=== PATIENT | female | born 1995 | race Caucasian/White ===

== ENCOUNTER → 2019-06-28 09:29 | Outpatient (CLI) | payer OTHER, SELFPAY ==
--- NOTE | 2019-06-28 09:34 | RAD_ITS ---
STUDY: HYSTEROSALPINGOGRAM. REASON FOR EXAM: Female, 24 years old. Infertility. FLUOROSCOPY TIME (if supplied): ( 19 seconds ) minutes/seconds TECHNIQUE: The wet process miller head performed a hysterosalpingogram. Imaging was submitted. COMPARISON: None. FINDINGS: The uterus is unremarkable. Both fallopian tubes are visualized and there is evidence of free spill. RAD/Salpingogram IMPRESSION: Unremarkable hysterosalpingogram. Electronically Signed: Fritz Ruiz, at 15:06 EST , Service support ,
== END ==
PROVIDERS: Family Provider Family Medicine; PCP Family Medicine; Referring Provider Obstetrics & Gynecology; Visit Provider Obstetrics & Gynecology
DX: N97.9 Female infertility, unspecified (principal)
CPT/HCPCS: 58340; 74740; Q9967

== ENCOUNTER 2021-10-02 09:40 | Inpatient (IN) | payer OTHER, SELFPAY ==
--- NOTE | 2021-09-30 13:56 | HP.PCM_ITS ---
History and Physical Date of Admission: 10/02/21 HPI: The patient is a 26 year old female presenting for pre-operative visit. She is scheduled for , for cholestasis of , 36-week high risk primigravida , maternal hearing malformation, high head at term with unfavorable cervix, polyhydramnios and gestational diabetes class A2 on 10/02/21. Procedure discussed along with risks, benefits and complications. Other alternatives discussed for management. Consent form signed? Reviewed but not signed, patient to sign day of surgery. ? ? PAST MEDICAL HISTORY PAST MEDICAL HISTORY Diagnosis Date ? Allergy, unspecified not elsewhere classified ? ? environmental-pollen ? anxiety ? ? Cholestasis during in third trimester 09/30/2021 ? Cyst, ovary, dermoid, left ? ? Diet controlled gestational diabetes mellitus (GDM) in third trimester 08/14/2021 ? History of Chiari malformation ? ? Infertility, female ? ? Irregular menses ? ? Malignant neoplasm of other specified sites of nervous system ? ? Neuroblastoma, Stage 4 dx at ? Meibomian gland dysfunction (MGD) of upper and lower lids of both eyes 11/27/2018 ? Menarche age 11 ? 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 Patellar tendinitis [id number] ? PMH - PAST MEDICAL HISTORY OF 02/17/1999 ? Color Vision - Normal ? Psoriasis and similar disorders ? ? Vitreous floaters of both eyes 11/27/2018 ? ? PAST SURGICAL HISTORY PAST SURGICAL HISTORY Procedure Laterality Date ? EMBRYO TRANSFER ? 01/01/2021 ? ? ESOPHAGOGASTRODUODENOSCOPY TRANSORAL DIAGNOSTIC ? 11/30/2012 ? EGD ? HSG ? 06/28/2019 ? HSG- normal uterine cavity, both tubes open ? OFFICE HYSTEROSCOPY ? 12/04/2020 ? PAST SURGICAL HISTORY OF ? ? ? at 6 mo of age had cancerous tumors removed from her abdomin ? PAST SURGICAL HISTORY OF ? ? ? broviac catheter for chemo treatments ? PAST SURGICAL HISTORY OF ? ? ? chemotherapy until age 1 ? REDUCTION OF LARGE BREAST Bilateral 10/2015 ? ? ? CURRENT MEDICATIONS Current Outpatient Medications Medication Sig Dispense Refill ? Breast Pump Use as directed 1 Each 0 ? blood sugar diagnostic test strip Use 1 Strip four times daily as inst ructed 360 Strip 1 ? Lancets lancets Use to test four times daily as instructed 400 Each 1 ? insulin NPH (HumuLIN N,NovoLIN N) pen Inject 20 Units subcutaneously daily at bedtime. 15 mL 1 ? sertraline (ZOLOFT) 100 mg tablet Take 1 tablet by mouth once daily. 90 tablet 3 ? Insulin Eagle, Disposable, (LITE TOUCH INSULIN PEN NEEDLES) 31 gauge x 1/4 ndle Use once daily 100 Each 1 ? aspirin, enteric coated (ECOTRIN LOW STRENGTH) 81 mg EC tablet Take 1 tablet by mouth once daily. ? ? ? Azelaic Acid 15 % gel Apply to the entire face up to twice daily. 50 g 6 ? PNV no.95/ferrous fum/folic ac ( ORAL) Take by mouth. ? ? ? ursodiol (ACTIGALL) 300 mg capsule Take 1 capsule by mouth three times daily. 24 capsule 0 ? No current facility-administered medications for this visit. ? ? ALLERGIES: Patient has no known allergies. ? PERSONAL HISTORY: SOCIAL HISTORY Social History ? Tobacco Use ? Smoking status: Never Smoker ? Smokeless tobacco: Never Used Vaping Use ? Vaping Use: Never used Substance Use Topics ? Alcohol use: No ? Drug use: No ? FAMILY HISTORY: FAMILY HISTORY FAMILY HISTORY Problem Relation Age of Onset ? other (migraine) Mother ? ? Asthma Father ? ? Stroke Father ? ? aortic disection ? other (aortic dissection) Father ? ? Asthma Brother ? ? Cancer Paternal Grandmother ? ? Stroke Paternal Grandfather ? ? other (Heart disease) Paternal Grandfather ? ? ? REVIEW OF SYMPTOMS: GENERAL: denies fevers or chills ENDOCRINOLOGY: has not been on steroids Cardiology : denies palpitations or chest pain Respiratory: denies SOB or cough Hematology: denies history of prolonged bleeding or easy bruising or VTE Allergy: Denies history of personal or family history of allergy to anesthesia ? PHYSICAL EXAMINATION: ? VITALS: Blood pressure 118/82, weight 181 lb (82.1 kg), last menstrual period 11/25/2020. ? GENERAL: The patient is well nourished, well hydrated in no acute distress. , The patient is oriented to time, place, and person. NECK: Supple. No lynphadenopathy, normal thyroid, no thyromegaly. LUNGS: Clear to auscultation bilaterally. no wheezes, rhonchi or rales HEART: Regular rate and rhythm, Normal heart sounds and No murmurs or gallops ABD- soft, nontender, gravid ext- 2+ edema, 1+ DTrs, no clonus ? IMPRESSION:PLAN/ 26-year-old 1 para 0 with endometrial . Presents for primary section. Has history of a Chiari malformation, she was cleared for vaginal delivery and regional anesthetic but was recommended not to have prolonged pushing. Her cervix is very unfavorable and head is unengaged. In addition the fetus is LGA and she has polyhydramnios. She also has cholestasis of . Risk benefits and alternatives to delivery at 36 weeks and risks of prematurity with fetus and maternal risks both short and senior care of section were reviewed with patient, her questions were answered to her satisfaction she desires to proceed. We reviewed option of induction. We reviewed option of continued close surveillance and delivery at 37 + weeks. She elects for c/s at 36 weeks. ? ? I have reviewed and updated past medical and surgical history, medications and allergies Assessment & Plan Assessment/Plan (1) 36 weeks gestation of : (2) Supervision of high-risk : (3) Chiari malformation type I: (4) Gestational diabetes mellitus, class A2: (5) Polyhydramnios affecting in third trimester: (6) Cholestasis during in third trimester: (7) resulting from in-vitro fertilization:
[2021-10-02] VITALS (18 sets, daily range): BP systolic 88–119; BP diastolic 42–81; PULSE 76–95; RESP 14–20; TEMP 35.7–36.6; O2SAT 94–99; BMI 33.3
[2021-10-02] MEDS: Lactated Ringers 1,000 ML 999 ML IV (10:00)
[2021-10-02 10:34] LABS: Absolute Lymphocyte Count 1.22 X10^3/uL (0.83-4.51); Absolute Neutrophil Count 6.5 X10^3/uL (2.0-7.7); Basophil# 0.03 X10^3/uL; Basophil% 0.4 % (0-1); Eosinophil# 0.06 X10^3/uL; Eosinophils% 0.7 % (0-5); Hematocrit 40.2 % (37-47); Lymphocyte # 1.22 X10^3/ul (0.83-4.51); Lymphocyte % 14.3 % (19-41); Mean Corp Hgb Conc 34.8 g/dL (32-36); Mean Corpuscular Hgb 35.2 pg (27.0-32.0); Mean Platelet Vol. 10.8 fl (6.2-12.0); Monocyte# 0.67 X10^3/uL; Monocyte% 7.8 % (0-10); NRBC Flagged by Analyzer 0 % (0-5); Neutrophil # 6.48 X10^3/uL (2.7-7.7); Neutrophil % 75.7 % (47-70); Platelet Count 228 K/mm3 (150-450); RBC Distribution Width CV 13.3 % (11.6-14.6); RBC Distribution Width SD 49.7 fl (35.1-43.9); Red Blood Count 3.98 M/mm3 (4.2-5.4); White Blood Count 8.6 K/mm3 (4.4-11.0)
[2021-10-02 10:55] LABS: Bedside Glucose 85 mg/dL (74-106)
[2021-10-02] MEDS: Lactated Ringers 1,000 ML 150 ML IV (11:25)
[2021-10-02] MEDS: Acetaminophen 500 MG Tablet 1000 MG PO ×2 (11:41→18:28)
[2021-10-02] MEDS: Sodium Citrate/Citric Acid 30 ML UDC PO (11:41)
[2021-10-02] MEDS: Cefazolin 2 GM in 0.9% Normal Saline 100 ML IV (11:55)
--- NOTE | 2021-10-02 13:04 | OP.PCM_ITS ---
Assessment & Plan (1) 36 weeks gestation of : (2) Supervision of high-risk : (3) Chiari malformation type I: (4) Gestational diabetes mellitus, class A2: (5) Polyhydramnios affecting in third trimester: (6) Cholestasis during in third trimester: (7) resulting from in-vitro fertilization: Maternal Data Information Final ARMANDO: 10/29/21 Gestational age: 36 1/7 Details Operative Information Date of Procedure: 10/02/21 Pre-Operative Diagnosis: 36 weeks, unfavorable cervix, high head at term- unengaged, maternal chiari malformation Post-Operative Diagnosis: same Classification: Scheduled Procedure Type: low transverse engineering technical analyst #1: Filiberto Bell Type of Anesthesia: Spinal Anesthesiologist: Briseida Jerez Special Medications: duramorph Antibiotic Given: Ancef 2 grams IV x1 Drain: Cisneros to straight drain Estimated Blood Loss: 900 Fluids Replaced: 1000 Procedure Start Time: 12:18 Procedure Stop Time: 12:53 Time of Delivery: 12:20 Findings Description of Procedure: The patient was taken to the operating room. She was prepped and draped in the dorsal supine position with a leftward tilt. A Pfan nenstiel skin incision was made approximately 2 cm above the symphysis pubis and carried through to underlying layer fascia with the scalpel. The fascia was incised incised in the midline and extended laterally with the Alexandra scissors. The fascia was dissected off the rectus muscles with blunt and sharp dissection. The rectus muscles were in the midline and the peritoneum was entered [bluntly]. The peritoneal incision was stretched and the bladder blade was placed. The uterine incision was made in a low transverse fashion with the scalpel and extended superiorly and inferiorly with blunt dissection. [The amniotic membranes were ruptured bluntly and clear amniotic fluid returned]. The 's head was brought to the incision in the flexed position and delivered without difficulty. The remainder of the infant was delivered with gentle traction and fundal pressure in the standard fashion. The mouth and nares were bulb suctioned. The cord was clamped and cut as the was stimulated. [Cord clamping was delayed]. The was handed off to the waiting nursing staff. The placenta was delivered with fundal massage and gentle traction in the standard fashion. The uterus was exteriorized and cleared of all clots and debris. [The cervix was dilated with a ring forcep]. The uterine incision was closed with #1 Vicryl in a running locked fashion. [A second layer of the same suture was used in an imbricating fashion.] The incision was examined and was found to be hemostatic. The uterus was placed back into the peritoneal cavity and hemostasis was again confirmed. The rectus muscles were examined and any bleeding was Bovie cauterized. [The parietal peritoneum and rectus muscles were closed en bloc with an 0 Vicryl running suture]. The surgical teams outer gloves were then changed. Gabriel was placed over the uterus, the rectus muscles, and in the subcutaneous tissue. Any bleeding was Bovie cauterized. The rectus fascia was examined and any bleeding was Bovie cauterized and the rectus fascia was closed with 0 PDS suture in a running standard fashion. The subcutaneous tissue was examining and any bleeding was Bovie cauterized. [The subcutaneous tissue was reapproximated with 3-0 Vicryl suture.] The skin was closed in a subcuticular fashion. I performed the entire procedure with assistance. All sponge, lap, and needle counts were correct. The patient was taken to her room for recovery in a stable condition. Presentation: Positive for Vertex Amniotic Membrane Rupture Type: Spontaneous Amniotic Fluid Description: Clear Placental Delivery Description: Expressed Placenta Disposition: Sent with transport team (Placenta to [facility] as transfered to [facility]) Cord Vessel Description: 3 Vessels Cord Entanglement: None Cord Gases: ABG and VBG Infant A Gender: Female (Candice) Delayed Cord Clamping: Yes Complications Complications: none
[2021-10-02] MEDS: Methylergonovine 0.2 MG/ML Ampul IM (13:10)
[2021-10-02] MEDS: Oxytocin 30 units/NS 500 ml 30 UNITS/500 ML IV.SOLN 167 UNITS IV (13:15)
--- NOTE | 2021-10-02 13:16 | NURSING ---
First check in or large clot expressed. total 200. Dr. Tanner aware. Okay to give Methergine. Upon entrance back to room small bleeding firm 2 below u.
[2021-10-02] MEDS: Ketorolac 30 MG/ML Syringe IV ×2 (13:30→19:34)
[2021-10-02] MEDS: Lactated Ringers 1,000 ML 100 ML IV (13:35)
[2021-10-02 16:16] LABS: Bedside Glucose 107 mg/dL (74-106)
[2021-10-02] MEDS: 0.9% Saline Lock 10 ML Syringe IV (19:34)
--- NOTE | 2021-10-02 21:17 | NURSING ---
IBCLC at bedside around 1940 assisting mother with initiation and education on pumping. Mother had the supplies but baby was able to breastfeed in SCN so she had not had to use it. Cleaning, handling, and sanitization explained and patient and indicate understanding. Mother pumped initially with the 25mm flange which were effective but explained if she was going to pump regularly she should try to use the flexishield inserts. Mother has a hx of a bilateral breast reduction but reports positive breast changes and said her breasts have grown to about the size she was before the reduction. When showing the mother how to use the pump she was able to get 3cc of milk in a very short time. Mother and previous IBCLC report that baby latched very well and easily in SCN so patient was instructed if baby is nursing well at least every 3 hours she doesn't have to pump but if baby ever does not nurse well to pump to ensure proper breast and nipple stimulation to assist with milk production.
--- NOTE | 2021-10-02 23:38 | NURSING ---
supervisor in charge updated on pulse ox reading 94%. resp nonlabored and WNL.
[2021-10-03] VITALS (11 sets, daily range): BP systolic 102–113; BP diastolic 60–73; PULSE 70–84; RESP 14–18; TEMP 36–36.3; O2SAT 92–97
[2021-10-03] MEDS: 0.9% Saline Lock 10 ML Syringe IV ×2 (01:10→06:34)
[2021-10-03] MEDS: Acetaminophen 500 MG Tablet 1000 MG PO ×4 (01:10→18:37)
[2021-10-03] MEDS: Ketorolac 30 MG/ML Syringe IV ×2 (01:10→06:34)
--- NOTE | 2021-10-03 01:43 | NURSING ---
pt unable to void 6 hours after caal cath removed. attempted x3. ammonium salt used. pt able to hydrate per PO well. straight cath performed. pt aware she has another 6 hours to void before an indwelling cath is placed. water tumbler refilled. PO fluids encouraged.
[2021-10-03 04:44] LABS: Hematocrit 33.4 % (37-47); Hemoglobin 11.1 g/dL (12.0-15.0); Mean Corp Hgb Conc 33.2 g/dL (32-36); Mean Corpuscular Hgb 34.8 pg (27.0-32.0); Mean Corpuscular Volume 104.7 fL (81-99); Mean Platelet Vol. 10.9 fl (6.2-12.0); Platelet Count 192 K/mm3 (150-450); RBC Distribution Width CV 13.4 % (11.6-14.6); RBC Distribution Width SD 51.8 fl (35.1-43.9); Red Blood Count 3.19 M/mm3 (4.2-5.4); White Blood Count 10.2 K/mm3 (4.4-11.0)
[2021-10-03 04:46] LABS: Bedside Glucose 138 mg/dL (74-106)
--- NOTE | 2021-10-03 10:10 | PN.OBGYN_ITS ---
Subjective Subjective Pain well controlled, average lochia. No N/V. Has been up and ambulating and visiting her daughter in [facility]. Objective Data Objective Data Vital Signs: Vital Signs Temp Pulse Resp BP Pulse Ox 97.0 F L 80 16 106/64 97 10/03/21 07:58 10/03/21 07:58 10/03/21 07:58 10/03/21 07:58 10/03/21 07:58 Oxygen Delivery Method Room Air Weight: 82.554 kg Body Mass Index (BMI) 33.3 Intake & Output: Intake and Output for Last 24 Hours 10/01/21 10/02/21 10/03/21 23:59 23:59 23:59 Intake Total 2771.5 / 2771.5 800 / 800 Output Total 250 / 250 1500 / 1500 Balance 2521.5 / 2521.5 -700 / -700 Lab / Micro Data Result Diagrams: 10/03/21 04:35 Labs: Laboratory Results - last 24 hr 10/02/21 10:10: WBC 8.6, RBC 3.98 L, Hgb 14.0, Hct 40.2, MCV 101.0 H, MCH 35.2 H , MCHC 34.8, RDW Std Deviation 49.7 H, RDW Coeff of Juliet 13.3, Plt Count 228, MPV 10.8, Immature Gran % (Auto) 1.100 H, Neut % (Auto) 75.7 H, Lymph % (Auto) 14.3 L, [place] % (Auto) 7.8, Eos % (Auto) 0.7, Baso % (Auto) 0.4, Absolute Neuts (auto) 6.5, Absolute Lymphs (auto) 1.22, Nucleated RBC % 0 10/02/21 10:10: Blood Type A POSITIVE, Antibody Screen NEGATIVE 10/02/21 10:42: POC Glucose 85 10/02/21 16:04: POC Glucose 107 H 10/03/21 04:33: POC Glucose 138 H 10/03/21 04:35: WBC 10.2, RBC 3.19 L, Hgb 11.1 L, Hct 33.4 L, MCV 104.7 H, MCH 34.8 H, MCHC 33.2, RDW Std Deviation 51.8 H, RDW Coeff of Juliet 13.4, Plt Count 192, MPV 10.9 Micro: Microbiology 10/02/21 10:00 Nasal Secretion SARS-CoV-2 Antigen (Rapid) - Final Physical Exam Const alert General Appearance: cooperative GI GI Narrative: soft, moderate distention, fundus firm, appropriately tender. Abdominal bandage clean dry and intact Assessment & Plan (1) delivery delivered: PLAN: Postoperative day #1 status post primary section. Patient is doing well. Routine care. Acute blood loss anemia is appropriate for blood loss during surgery. is breast-feeding and doing well in the special care nursery.
[2021-10-03] MEDS: Sertraline 100 MG Tablet PO (11:55)
[2021-10-03] MEDS: Senna/Docusate Sodium 1 Tablet PO (11:55)
[2021-10-03] MEDS: Ibuprofen 600 MG Tablet PO ×2 (13:03→18:37)
[2021-10-04] MEDS: Ibuprofen 600 MG Tablet PO ×4 (00:56→18:49)
[2021-10-04] MEDS: Acetaminophen 500 MG Tablet 1000 MG PO ×4 (01:28→18:49)
[2021-10-04 02:50] VITALS: BP 111/66; PULSE 82; RESP 16; TEMP 36.2; O2SAT 95
[2021-10-04 09:45] VITALS: BP 119/80; PULSE 85; RESP 18; TEMP 36.6
--- NOTE | 2021-10-04 11:06 | PCM.PN.OB ---
Subjective Subjective Pain well controlled. Average lochia. Ambulating and tolerating regular diet without difficulty. Positive flatus. No bowel movement yet. Objective Data Objective Data Vital Signs: Vital Signs Temp Pulse Resp BP Pulse Ox 97.8 F 85 18 119/80 95 10/04/21 09:45 10/04/21 09:45 10/04/21 09:45 10/04/21 09:45 10/04/21 02:50 Oxygen Delivery Method Room Air Weight: 82.554 kg Body Mass Index (BMI) 33.3 Intake & Output: Intake and Output for Last 24 Hours 10/02/21 10/03/21 10/04/21 23:59 23:59 23:59 Intake Total 2771.5 / 2771.5 800 / 800 Output Total 250 / 250 2100 / 2100 Balance 2521.5 / 2521.5 -1300 / -1300 Lab / Micro Data Result Diagrams: 10/03/21 04:35 Micro: Microbiology 10/02/21 10:00 Nasal Secretion SARS-CoV-2 Antigen (Rapid) - Final Physical Exam Const alert General Appearance: cooperative GI GI Narrative: soft, moderate distention, fundus firm, appropriately tender. Abdominal bandage clean dry and intact Assessment & Plan (1) delivery delivered: PLAN: Postop day #2 status post primary section. Patient is doing well. is doing well in special care nursery. Patient anticipates will be discharged tomorrow. Discharge patient home tomorrow.
[2021-10-04] MEDS: Sertraline 100 MG Tablet PO (12:46)
[2021-10-04] MEDS: Senna/Docusate Sodium 1 Tablet PO (12:46)
[2021-10-04 14:00] VITALS: BP 117/75; PULSE 74; RESP 18; TEMP 36.3; O2SAT 96
[2021-10-04 21:20] VITALS: BP 117/72; PULSE 86; RESP 16; TEMP 36.3; O2SAT 96
[2021-10-05] MEDS: Ibuprofen 600 MG Tablet PO ×2 (00:45→06:50)
[2021-10-05] MEDS: Acetaminophen 500 MG Tablet 1000 MG PO ×2 (01:29→06:50)
[2021-10-05 01:33] VITALS: BP 117/72; PULSE 75; RESP 18; TEMP 36.3; O2SAT 97
[2021-10-05 07:40] VITALS: BP 124/80; PULSE 91; RESP 16; TEMP 36.1
--- NOTE | 2021-10-05 08:49 | PCM.PN.OB ---
Subjective Subjective POD #3 Primary LTCS. Doing well per patient and nursing staff. Ambulating and taking PO without difficulty. Voiding and passing flatus. Pain controlled. Denies headache, visual changes, chest pain, shortness of breath, leg pain or increased bleeding. Lochia normal. in SCN, planning D/C home today. Objective Data Objective Data Vital Signs: Vital Signs Temp Pulse Resp BP Pulse Ox 96.9 F L 91 16 124/80 H 97 10/05/21 07:40 10/05/21 07:40 10/05/21 07:40 10/05/21 07:40 10/05/21 01:33 Oxygen Delivery Method Room Air Weight: 182 lb Body Mass Index (BMI) 33.3 Intake & Output: Intake and Output for Last 24 Hours 10/03/21 10/04/21 10/05/21 23:59 23:59 23:59 Intake Total 800 / 800 Output Total 2100 / 2100 Balance -1300 / -1300 Lab / Micro Data Result Diagrams: 10/03/21 04:35 Micro: Microbiology 10/02/21 10:00 Nasal Secretion SARS-CoV-2 Antigen (Rapid) - Final ROS Constitutional Constitutional: Reports systems reviewed and no addt'l complaints, except as documented; Denies headache(s) Eyes Eyes: Denies acute decrease in peripheral vision, blurry vision or change in vision ENT HEENT: Reports systems reviewed and no addt'l complaints, except as documented Cardiovascular Cardiovascular: Denies chest pain or dizziness Respiratory/Chest Respiratory/Chest: Denies cough, dyspnea, dyspnea on exertion, shortness of breath at rest or shortness of breath with exertion Gastrointestinal Gastrointestinal: Denies abdominal pain, diarrhea, nausea or vomiting Genitourinary Genitourinary: Denies abdominal discomfort Musculoskeletal Musculoskeletal: Denies limited range of motion Integumentary Integumentary: Reports systems reviewed and no addt'l complaints, except as documented Neurologic Neurologic: Reports systems reviewed and no addt'l complaints, except as documented Psychiatric Psychiatric: Reports systems reviewed and no addt'l complaints, except as documented Endocrine Endocrinology: Reports systems reviewed and no addt'l complaints, except as documented Hematologic/Lymphatic Hematologic/Lymphatic: Reports systems reviewed and no addt'l complaints, except as documented Allergic/Immunologic Allergic/Immunologic: Reports systems reviewed and no addt'l complaints, except as documented Physical Exam Const alert and oriented x3 General Appearance: cooperative Orientation / Consciousness: awake, oriented to person, oriented to place and oriented to time Exam Limitations: no limitations HEENT normocephalic Head and Scalp: normal to inspection, normocephalic and atraumatic Face and Sinus: normal facial exam Eyes General Eye: normal appearance of both eyes Neck full ROM Chest Chest: symmetrical chest wall rise Resp normal respiratory effort and normal air movement Auscultation: clear to auscultation bilaterally Cardio regular rate, regular rhythm, S1 normal heart sound, S2 normal heart sound, no murmurs, no rub, no gallops and no clicks GI normal to inspection, nondistended, normoactive bowel sounds GI Narrative: Fundus firm 3 below U. Dressing dry and intact Bladder / Kidney Exam: no CVA tenderness Back/Spine normal ROM Extremity normal to inspection and full ROM Extremity Narrative: +1 BLE pitting edema. Kishan's negative bilaterally Skin no rashes or lesions noted Neuro oriented x3, CN's II-XII intact bilaterally and moves all extremities Sensorium / Orientation: awake, alert and oriented to person Motor Exam: clonus absent Deep Tendon Reflexes: Rt Patellar (L4): 2+ and Lt Patellar (L4): 2+ Assessment & Plan (1) delivery delivered: (2) Chiari malformation type I: (3) Gestational diabetes mellitus, class A2: PLAN: 1) POD #3 primary LTCS 2) Vitals stable 3) getting [facility] from [facility] 4) Follow up in 1-2 weeks for incision check, 6 week PP visit 5) Pain management 6) D/C home
--- NOTE | 2021-10-05 08:54 | DS.PCM_ITS ---
Providers Date of Admission: 10/02/21 Primary Care Physician: Dr. Roge Nieto MD Reason For Visit: PRIMARY C SECTION Diagnosis Discharge Diagnosis (1) delivery delivered: Status: Acute Code(s): O82 - Encounter for delivery without indication (2) Chiari malformation type I: Status: Acute Code(s): G93.5 - Compression of brain (3) Gestational diabetes mellitus, class A2: Status: Acute Code(s): O24.419 - Gestational diabetes mellitus in , unspecified control Medications at Discharge Home Medications [id number]-[id number] 1 tab PO DAILY 10/02/21 sertraline [Zoloft] 100 mg PO DAILY 10/02/21 acetaminophen 1,000 mg PO Q6 #0 tab 10/05/21 ibuprofen 600 mg PO Q6H #30 tab 10/05/21 oxycodone 5 mg PO Q6H 7 Days #10 tab 10/05/21 sennosides-docusate sodium [Stool Softener-Stimulant Laxat] 1 tab-cap PO DAILY # 30 tab 10/05/21 Hospital Course Summary of Care Provided Hospital Course: Presented on 09/30/21 for primary Low transverse section due to history of chiari malformation, polyhydramnios, GDMA2, and suspe cted LGA. Normal postoperative course. Discharge home on postoperative day #3 Weight / BMI Weight Weight: 182 lb Body Mass Index (BMI) 33.3 ABG / Lab / Microbiology Data Result Diagrams: 10/03/21 04:35 Microbiology: Microbiology 10/02/21 10:00 Nasal Secretion SARS-CoV-2 Antigen (Rapid) - Final Meaningful Use Info Meaningful Use Diagnoses (Choose all that apply): None applicable Discharge Plan Admission Admit Date/Time: 10/02/21 09:40 Primary Reason for Your Visit: section Attending Provider: Florencia Tanner Primary Care Provider: Roge Nieto Discharge Orders/Prescriptions Prescriptions: New sennosides-docusate sodium [Stool Softener-Stimulant Laxat] 8.6-50 mg Tablet 1 tab-cap PO DAILY Qty: 30 RF: 0 acetaminophen 500 mg Tablet 1,000 mg PO Q6 Qty: 0 RF: 0 ibuprofen 600 mg Tablet 600 mg PO Q6H Qty: 30 RF: 0 oxycodone 5 mg Tablet 5 mg PO Q6H 7 Days Qty: 10 RF: 0 Continued sertraline [Zoloft] 100 mg Tablet 100 mg PO DAILY RF: 0 ojsrkzan-kjh-Pb-FA 1 mg Tablet 1 tab PO DAILY RF: 0 Discontinued aspirin [Baby Aspirin] 81 mg Tablet,Chewable 81 mg PO DAILY RF: 0 Referrals / Follow Up: Roge Nieto MD [Primary Care Provider] - Florencia Tanner MD [STAFF PHYSICIAN] - (follow up in 2 weeks for incision check and 6 week for PP visit) Disposition Disposition (needs filled in before D/C Order can be placed): Home, Self Care
== END 2021-10-05 10:15 | disposition home or self-care (01) | DRG 786 ==
PROVIDERS: Admitting Provider Obstetrics & Gynecology; PCP Family Medicine; Visit Provider Obstetrics & Gynecology
PROC: 10D00Z1 Extraction of Products of Conception, Low, Open Approach (ICD-10-PCS; CPT 59514; principal; 2021-10-02 11:45)
DX: O99.354 Diseases of the nervous system complicating childbirth (principal); K83.1 Obstruction of bile duct; G93.5 Compression of brain; O24.424 Gestational diabetes mellitus in childbirth, insulin controlled; F41.9 Anxiety disorder, unspecified; O40.3XX0 Polyhydramnios, third trimester, not applicable or unspecified; O26.62 Liver and biliary tract disorders in childbirth; Z3A.36 36 weeks gestation of pregnancy; Z37.0 Single live birth; Z79.82 Long term (current) use of aspirin; O99.344 Other mental disorders complicating childbirth; Z79.899 Other long term (current) drug therapy
CPT/HCPCS: 59025; 59050; 82962; 85025; 85027; 86850; 86900; 86901; 87426; 94660; 94799; 99218; J7120; A4216; G0378; J2405

== ENCOUNTER 2023-06-08 05:30 | Inpatient (IN) | payer OTHER, SELFPAY ==
--- NOTE | 2023-06-01 15:19 | PCM.HP.BLA ---
History and Physical Date of Admission: 06/08/23 HPI: The patient is a 27 year old female presenting for pre-operative visit. She is scheduled for and tubal sterilization, for 37 weeks, cholestasis, previous c/s, GDM and sterilization request on 06/08/23. Procedure discussed along with risks, benefits and complications. Other alternatives discussed for management. Consent form signed? Yes. ? ? PAST MEDICAL HISTORY PAST MEDICAL HISTORY Diagnosis Date ? Allergy, unspecified not elsewhere classified ? ? environmental-pollen ? anxiety ? ? Cholestasis during in third trimester 09/30/2021 ? Cyst, ovary, dermoid, left ? ? Diet controlled gestational diabetes mellitus (GDM) in third trimester 08/14/2021 ? 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 April 23, 2021 nonspecific antibody reaction, see ab. report. likely won't become clinically significant for the itself but repeat in 4 weeks to make sure no specific antibody is identified. Florencia Tanner MD ? History of anxiety 03/12/2021 ? 03/12/2021 Patient has a history of anxiety treated by Dr. Nieto. She currently takes Zoloft. She denies ever having depression. TKRN ? History of Chiari malformation ? ? History of cholestasis during ? ? Infertility, female ? ? Insulin controlled gestational diabetes mellitus (GDM) in third trimester 08/14/2021 ? Irregular menses ? ? Malignant neoplasm of other specified sites of nervous system ? ? Neuroblastoma, Stage 4 dx at ? Meibomian gland dysfunction (MGD) of upper and lower lids of both eyes 11/27/2018 ? Menarche age 11 ? 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 Patellar tendinitis [id number] ? PMH - PAST MEDICAL HISTORY OF 02/17/1999 ? Color Vision - Normal ? Psoriasis and similar disorders ? ? Red blood cell antibody positive 04/21/2021 ? 05/21/21: negative AB SCREEN Arlet Roque MD See Blood Bank Report, Antibody Interpretation for details. ? Vitreous floaters of both eyes 11/27/2018 ? ? PAST SURGICAL HISTORY PAST SURGICAL HISTORY Procedure Laterality Date ? DELIVERY ONLY ? 10/02/2021 ? EMBRYO TRANSFER ? 01/01/2021 ? 2022 ? ESOPHAGOGASTRODUODENOSCOPY TRANSORAL DIAGNOSTIC ? 11/30/2012 ? EGD ? HSG ? 06/28/2019 ? HSG- normal uterine cavity, both tubes open ? OFFICE HYSTEROSCOPY ? 12/04/2020 ? PAST SURGICAL HISTORY OF ? ? ? at 6 mo of age had cancerous tumors removed from her abdomin ? PAST SURGICAL HISTORY OF ? ? ? broviac catheter for chemo treatments ? PAST SURGICAL HISTORY OF ? ? ? chemotherapy until age 1 ? REDUCTION OF LARGE BREAST Bilateral 10/2015 ? ? ? CURRENT MEDICATIONS Current Outpatient Medications Medication Sig Dispense Refill ? fluticasone (FLONASE) 50 mcg/actuation nasal spray Use 2 Sprays in each nostril once daily. Rinse mouth after use. 16 g 0 ? olopatadine (PATANOL) 0.1 % ophthalmic solution Use 1 Drop in the left eye two times a day for 30 days. 5 mL 0 ? insulin NPH subcutaneous pen Inject 20 Units subcutaneously daily at bedtime. 3 mL 1 ? ursodiol (ACTIGALL) 300 mg capsule Take 1 capsule by mouth three times a day. 90 capsule 3 ? ondansetron (ZOFRAN) 4 mg tablet Take 1 tablet by mouth every 8 hours as needed for nausea/vomiting. 30 tablet 1 ? prental multivitamin 27 mg iron- 800 mcg tablet Take 1 tablet by mouth once daily. ? ? ? sertraline (ZOLOFT) 100 mg tablet Take 1 tablet by mouth once daily. 90 tablet 3 ? No current facility-administered medications for this visit. ? ? ALLERGIES: Patient has no known allergies. ? PERSONAL HISTORY: SOCIAL HISTORY Social History ? Tobacco Use ? Smoking status: Never ? Smokeless tobacco: Never Vaping Use ? Vaping Use: Never used Substance Use Topics ? Alcohol use: No ? Drug use: No ? FAMILY HISTORY: FAMILY HISTORY FAMILY HISTORY Problem Relation Age of Onset ? other (migraine) Mother ? ? Eczema Mother ? ? Anxiety disorder Mother ? ? Asthma Father ? ? Stroke Father ? ? aortic disection ? other (aortic dissection) Father ? ? Asthma Brother ? ? Cancer Paternal Grandmother ? ? Stroke Paternal Grandmother ? ? Stroke Paternal Grandfather ? ? other (Heart disease) Paternal Grandfather ? ? No Known Problems Daughter ? ? ? REVIEW OF SYMPTOMS: GENERAL: denies fevers or chills ENDOCRINOLOGY: has not been on steroids Cardiology : denies palpitations or chest pain Respiratory: denies SOB or cough Hematology: denies history of prolonged bleeding or easy bruising or VTE Allergy: Denies history of personal or family history of allergy to anesthesia ? PHYSICAL EXAMINATION: ? VITALS: not currently . ? GENERAL: The patient is well nourished, well hydrated in no acute distress. , The patient is oriented to time, place, and person. NECK: Supple. No lynphadenopathy, normal thyroid, no thyromegaly. LUNGS: Clear to auscultation bilaterally. no wheezes, rhonchi or rales HEART: Regular rate and rhythm, Normal heart sounds, and No murmurs or gallops abd- soft, nontender, gravid ? ? IMPRESSION: Estimated Date of Delivery: 06/29/23 w/ previous c/s, cholestasis of , sterization request and GDMA2s ? PLAN: The risks/benefits/alternatives and personal involved for the planned c/-s and tubal sterilization were reviewed with the patient. Her questions were answered to her satisfaction and she desires to proceed. Consent was signed. I reviewed with her postop instructions and expectations. ? ? I have reviewed and updated past medical and surgical history, medications and allergies Assessment & Plan Assessment/Plan (1) 39 weeks gestation of : (2) Chiari malformation type I: (3) Gestational diabetes mellitus, class A2: (4) Cholestasis during in third trimester: (5) resulting from in-vitro fertilization: (6) Sterilization: (7) Previous delivery affecting : (8) Supervision of high-risk : (9) 38 weeks gestation of :
[2023-06-08] VITALS (23 sets, daily range): BP systolic 105–120; BP diastolic 42–74; PULSE 70–96; RESP 15–24; TEMP 36.1–36.8; O2SAT 93–100; BMI 34.4
[2023-06-08] MEDS: Lactated Ringers 1,000 ML 999 ML IV (05:50)
[2023-06-08 06:05] LABS: Absolute Neutrophil Count 7.7 X10^3/uL (2.0-7.7); Basophil# 0.04 X10^3/uL; Basophil% 0.4 % (0-1); Eosinophil# 0.09 X10^3/uL; Eosinophils% 0.8 % (0-5); Hematocrit 37.1 % (37-47); Hemoglobin 12.4 g/dL (12.0-15.0); Lymphocyte % 16.9 % (19-41); Mean Corp Hgb Conc 33.4 g/dL (32-36); Mean Corpuscular Hgb 33.2 pg (27.0-32.0); Mean Corpuscular Volume 99.2 fL (81-99); Mean Platelet Vol. 10.2 fl (6.2-12.0); Monocyte# 0.91 X10^3/uL; Monocyte% 8.5 % (0-10); NRBC Flagged by Analyzer 0 % (0-5); Neutrophil # 7.68 X10^3/uL (2.7-7.7); Neutrophil % 72.1 % (47-70); Platelet Count 185 K/mm3 (150-450); RBC Distribution Width CV 13.3 % (11.6-14.6); RBC Distribution Width SD 47.7 fl (35.1-43.9); Red Blood Count 3.74 M/mm3 (4.2-5.4); White Blood Count 10.7 K/mm3 (4.4-11.0)
[2023-06-08] MEDS: Acetaminophen 500 MG Tablet 1000 MG PO ×3 (06:14→18:16)
[2023-06-08 06:20] LABS: Bedside Glucose 83 mg/dL (74-106)
[2023-06-08] MEDS: Lactated Ringers 1,000 ML 150 ML IV (06:52)
[2023-06-08] MEDS: Sodium Citrate/Citric Acid 30 ML UDC PO (07:03)
[2023-06-08] MEDS: Cefazolin 2 GM in 0.9% Normal Saline (100mL Bag) 100 ML IV (07:30)
--- NOTE | 2023-06-08 07:40 | FALS_PTH ---
PATIENT: FERNANDA COLBERT LOC: [facility] U#:[id number] AGE/SX: 27/F ROOM: WP007 RE06/08/[address]: Dr. Florencia Tanner MD : 1995 BED: 1 DIS: 06/10/2023 SPEC #: [id number] RECD: 06/08/23 09:29 STATUS: YAMILE RAYO #: [id number] KAILASH: 06/08/23 07:[address]: Florencia Tanner DEPT: SURGICAL PATHOLOGY RECD BY: Amy Higgins ENTERED: 06/08/23 09:29 SP TYPE: FALL TUBES OTHR DR: Dr. Roge Nieto MD Tissues: Fallopian tube Procedures: Surgery Specimen Level II Surgery Specimen Level IV HEADER OPERATION: Tubal ligation PRE-OP DIAGNOSIS: Sterilization TISSUE SUBMITTED: Fallopian tubes MICROSCOPIC DIAGNOSIS Right and left fallopian tubes, bilateral salpingectomies: Two complete cross-sections of fallopian tubes. One fallopian tube with benign paratubal cysts. AM:monica 06/10/2023 MICROSCOPIC DESCRIPTION Slides are reviewed. GROSS DESCRIPTION Received in fixative is one container labeled with the patient's name and designated bilateral fallopian tubes, left with stitch. The specimen consists of two fallopian tubes with an average length of 8.0 cm and has an average diameter of 0.8 cm. Both fallopian tubes have normal fimbriated ends. No mass lesions are identified. The left fallopian tube contains a paratubal cyst measuring 1.5 cm and containing clear fluid. Editor In Chief sections are submitted in two cassettes as follows: 1 - right fallopian tube, 2 - left other fallopian tube and paratubal cyst. / AM:monica 06/08/2023 TC:5 CPT: 06860, 93024
--- NOTE | 2023-06-08 08:24 | OP.PCM_ITS ---
Assessment & Plan (1) Previous delivery affecting : (2) Sterilization: (3) Cholestasis during in third trimester: (4) Polyhydramnios affecting in third trimester: (5) Gestational diabetes mellitus, class A2: (6) Supervision of high-risk : (7) 37 weeks gestation of : Maternal Data Information Final ARMANDO: 06/29/23 Gestational age: 37 Details Operative Information Date of Procedure: 06/08/23 Pre-Operative Diagnosis: cholestasis Post-Operative Diagnosis: same Indications for : Repeat Elective and Desires elective sterilization Classification: Scheduled Procedure Type: low transverse (with bilateral salpingectomy) beehive kiln supervisor #1: Telma Bateman Type of Anesthesia: Spinal Anesthesiologist: Ganesh Dunne Special Medications: duramorph Antibiotic Given: Ancef 2 grams IV x1 Drain: Cisneros to straight drain Estimated Blood Loss: 600 Fluids Replaced: 1100 Procedure Start Time: 07:45 Time of Delivery: 07:49 Findings Description of Procedure: The patient was taken to the operating room. She was prepped and draped in the dorsal supine position with a leftward tilt. A Pfannenstiel skin incision was made approximately 2 cm above the symphysis pubis and carried through to underlying layer fascia with the scalpel. The fascia was incised incised in the midline and extended laterally with the Alexandra scissors. The fascia was dissected off the rectus muscles with blunt and sharp dissection. The rectus muscles were in the midline and the peritoneum was entered bluntly. The peritoneal incision was stretched and the bladder blade was placed. The uterine incision was made in a low transverse fashion with the scalpel and extended superiorly and inferiorly with blunt dissection. The amniotic membranes were ruptured bluntly and clear amniotic fluid returned. The 's head was brought to the incision in the flexed position and delivered without difficulty. The remainder of the infant was delivered with gentle traction and fundal pressure in the standard fashion. The mouth and nares were bulb suctioned. The cord was clamped and cut as the was stimulated. Cord clamping was delayed. The infant was handed off to the waiting nursing staff. The placenta was delivered with fundal massage and gentle traction in the standard fashion. The uterus was exteriorized and cleared of all clots and debris. The cervix was dilated with a ring forcep. The uterine incision was closed with #1 Vicryl in a running locked fashion. The incision was examined and was found to be hemostatic. The uterus was placed back into the peritoneal cavity and hemostasis was again confirmed. The rectus muscles were examined and any bleeding was Bovie cauterized. The parietal peritoneum and rectus muscles were closed en bloc with an 0 Vicryl running suture. The rectus fascia was examined and any bleeding was Bovie cauterized and the rectus fascia was closed with #1 PDS suture in a running standard fashion. The subcutaneous tissue was examining and any bleeding was Bovie cauterized. The subcutaneous tissue was reapproximated with 3-0 Vicryl suture. The skin was closed in a subcuticular fashion by the MACHINIST OUTSIDE with me present in the labor and delivery suite. I performed the remainder of the procedure with assistance. All sponge, lap, and needle counts were correct. The patient was taken to her room for recovery in a stable condition. Presentation: Positive for Vertex Amniotic Membrane Rupture Type: Artificial Amniotic Fluid Description: Clear Placental Delivery Description: Manual Removal Placenta Disposition: [facility] Specimen(s) Sent to Pathology: fallopian tubes Cord Vessel Description: 3 Vessels Cord Entanglement: None A Gender: Male (6lb 1 oz) (1 minute): 8 (5 minute): 9 Delayed Cord Clamping: Yes Complications Complications: none Admit VTE Documentation VTE Present on Admission: No VTE Mechan Device Prophylaxis: SCD's VTE Pharm Prophylaxis Ordered: Yes
[2023-06-08] MEDS: Oxytocin 15 Units/NS 250ml 15 UNITS/250 ML IV.SOLN 83 UNITS IV (08:40)
[2023-06-08 08:56] LABS: Syphilis Antibodies Non-reactive
[2023-06-08 08:57] LABS: Pathology Specimen OB SEE PATHOLOGY REPORT
[2023-06-08] MEDS: Ketorolac 30 MG/ML Syringe IV ×3 (09:11→20:29)
[2023-06-08 09:37] LABS: Bedside Glucose 99 mg/dL (74-106)
[2023-06-08] MEDS: Lactated Ringers 1,000 ML 100 ML IV (11:53)
[2023-06-08] MEDS: Enoxaparin 40 MG/0.4 ML Syringe SC (20:16)
[2023-06-08] MEDS: Sertraline 100 MG Tablet PO (20:16)
[2023-06-08] MEDS: 0.9% Saline Lock 10 ML Syringe IV (20:29)
[2023-06-09] MEDS: Acetaminophen 500 MG Tablet 1000 MG PO ×4 (00:08→18:55)
[2023-06-09 00:09] VITALS: BP 114/61; PULSE 75; RESP 18; TEMP 36.1; O2SAT 97
[2023-06-09] MEDS: Ketorolac 30 MG/ML Syringe IV (03:13)
[2023-06-09 04:50] VITALS: BP 112/63; PULSE 72; RESP 18; TEMP 36.1; O2SAT 100
[2023-06-09 05:06] LABS: Hemoglobin 10.6 g/dL (12.0-15.0); Mean Corp Hgb Conc 33.1 g/dL (32-36); Mean Corpuscular Hgb 33.2 pg (27.0-32.0); Mean Corpuscular Volume 100.3 fL (81-99); Mean Platelet Vol. 10.1 fl (6.2-12.0); Platelet Count 176 K/mm3 (150-450); RBC Distribution Width CV 13.5 % (11.6-14.6); RBC Distribution Width SD 49.3 fl (35.1-43.9); Red Blood Count 3.19 M/mm3 (4.2-5.4); White Blood Count 10.5 K/mm3 (4.4-11.0)
[2023-06-09 05:22] LABS: Bedside Glucose 115 mg/dL (74-106)
--- NOTE | 2023-06-09 07:18 | PCM.PN.OB ---
Subjective Subjective pain well controlled, average lochia Objective Data Objective Data Vital Signs: Vital Signs Temp Pulse Resp BP Pulse Ox O2 Del Method 97.0 F L 72 18 112/63 100 Room Air 06/09/23 04:50 06/09/23 04:50 06/09/23 04:50 06/09/23 04:50 06/09/23 04:50 06/09/23 04:50 Oxygen Delivery Method Room Air Weight: 82.735 kg Body Mass Index (BMI) 34.4 Intake & Output: Intake and Output for Last 24 Hours 06/07/23 06/08/23 06/09/23 23:59 23:59 23:59 Intake Total 3189 / 3189 Output Total 700 / 700 250 / 250 Balance 2489 / 2489 -250 / -250 Lab / Micro Data 06/09/23 04:55 Labs: Laboratory Results - last 24 hr 06/08/23 05:50: Syphilis Total Ab Non-reactive 06/08/23 09:05: POC Glucose 99 06/09/23 04:55: WBC 10.5, RBC 3.19 L, Hgb 10.6 L, Hct 32.0 L, MCV 100.3 H, MCH 33.2 H, MCHC 33.1, RDW Std Deviation 49.3 H, RDW Coeff of Juliet 13.5, Plt Count 176, MPV 10.1 06/09/23 04:59: POC Glucose 115 H Physical Exam Const alert General Appearance: cooperative GI GI Narrative: soft, moderate distention, fundus firm, appropriately tender. Abdominal bandage clean dry and intact Assessment & Plan (1) Previous delivery affecting : PLAN: Plan POD#1 doing well routine care
[2023-06-09 08:52] VITALS: BP 118/78; PULSE 70; RESP 16; TEMP 35.9; O2SAT 96
[2023-06-09] MEDS: Ibuprofen 600 MG Tablet PO ×3 (09:10→21:02)
[2023-06-09] MEDS: Senna/Docusate Sodium 1 Tablet PO (12:58)
[2023-06-09 14:00] VITALS: BP 109/64; PULSE 72; RESP 16; TEMP 36.1; O2SAT 96
[2023-06-09 19:39] VITALS: BP 121/79; PULSE 79; RESP 16; TEMP 36.2; O2SAT 97
[2023-06-09] MEDS: Sertraline 100 MG Tablet PO (19:42)
[2023-06-09] MEDS: Enoxaparin 40 MG/0.4 ML Syringe SC (19:42)
[2023-06-10] MEDS: Acetaminophen 500 MG Tablet 1000 MG PO ×2 (00:09→06:07)
[2023-06-10] MEDS: Ibuprofen 600 MG Tablet PO ×2 (03:03→09:20)
[2023-06-10 03:06] VITALS: BP 119/75; PULSE 71; RESP 16; TEMP 36.2; O2SAT 97
--- NOTE | 2023-06-10 07:00 | DS.PCM_ITS ---
Providers Date of Admission: 06/08/23 Primary Care Physician: Dr. Roge Nieto MD Reason For Visit: C SECTION Diagnosis Discharge Diagnosis (1) Previous delivery affecting : Status: Acute Code(s): O34.219 - Maternal care for unspecified type scar from previous delivery (2) Sterilization: Status: Acute Code(s): Z30.2 - Encounter for sterilization (3) Care and examination of lactating mother: Status: Acute Code(s): Z39.1 - Encounter for care and examination of lactating mother (4) Postoperative pain: Status: Resolved Code(s): G89.18 - Other acute postprocedural pain Plan POD 2 Repeat C/S with BTL Pain control Ambulating and voiding without difficulty Lochia decreased with minimal support Medications at Discharge Home Medications [id number] 1 mg tablet 1 tab PO DAILY Check with primary doctor 10/02/21 sertraline 100 mg tablet (Zoloft) 100 mg PO DAILY Check with primary doctor 10/02/21 estradiol 2 mg tablet mg 06/08/23 acetaminophen 500 mg tablet 1,000 mg (2 x 500 mg) PO Q6H #0 tabs 06/10/23 ibuprofen 600 mg tablet 600 mg PO Q6H #0 tabs 06/10/23 oxycodone 5 mg tablet 5 - 10 mg (1 - 2 x 5 mg) PO Q4H PRN PRN Pain Score 4-10 3 days #10 tabs 06/10/23 sennosides 8.6 mg-docusate sodium 50 mg tablet (Stool Softener-Stimulant Laxative) 1 - 2 tab PO DAILY #0 tabs 06/10/23 Hospital Course Operations section Procedures None Summary of Care Provided Minutes Spent on Discharge: 15 Hospital Course: Patient was for repeat section. Hospital course was uneventful. Physical Exam Narrative Dressing is dry and intact Const alert and no apparent distress General Appearance: cooperative and comfortable Exam Limitations: no limitations HEENT normocephalic Eyes General Eye: normal appearance of both eyes Neck full ROM General: normal visual inspection Chest Chest: symmetrical chest wall rise Resp normal respiratory effort and normal air movement Effort and Inspection: symmetric chest movement Auscultation: clear to auscultation bilaterally Cardio regular rate and regular rhythm GI normal to inspection, nondistended, normoactive bowel sounds Back/Spine normal ROM Extremity full ROM and no calf tenderness General Extremity: normal exam except as noted Skin no rashes or lesions noted Neuro CN's II-XII intact bilaterally Psych mental status grossly normal Weight / BMI Weight Weight: 182 lb 6.4 oz Body Mass Index (BMI) 34.4 ABG / Lab / Microbiology Data 06/09/23 04:55 D/C Instructions Discharge Diet: No restrictions May resume sexual activity in: 6-8 weeks Weight Bearing Status: Weight bearing as tolerated Lifting Restrictions: 20 lbs Call your doctor if your incision/area has: Continuous Slow Oozing, Increased Pa in/ Swelling, Increased Redness, Foul Smelling Discharge and Swelling at the incision site Call your doctor if you observe: Fever of 101 or Higher, Inability to urinate, Using more than 1 pad per hour, Shortness of breath, Chest pain, Calf discomfort and Uncontrolled pain Remove Dressing in: 5 days Cleanse incision/area with: Soap & Water and Keep Dressing Clean & Dry When: 1 week in office for incision check or sooner if needed 6 weeks Meaningful Use Info Meaningful Use Diagnoses (Choose all that apply): None applicable Discharge Plan Admission Admit Date/Time: 06/08/23 05:30 Primary Reason for Your Visit: Repeat Section Attending Provider: Florencia Tanner Primary Care Provider: Roge Nieto Discharge Orders/Prescriptions Prescriptions: New acetaminophen 500 mg Tablet 1,000 mg PO Q6H Qty: 0 0RF ibuprofen 600 mg Tablet 600 mg PO Q6H Qty: 0 0RF oxycodone 5 mg Tablet 5 - 10 mg PO Q4H PRN PRN (Reason: Pain Score 4-10) 3 Days Qty: 10 0RF sennosides-docusate sodium [Stool Softener-Stimulant Laxat] 8.6-50 mg Tablet 1 - 2 tab PO DAILY Qty: 0 0RF Continued sertraline [Zoloft] 100 mg Tablet 100 mg PO DAILY popezxyr-[id number] 1 mg Tablet 1 tab PO DAILY estradiol 2 mg tablet Referrals / Follow Up: Roge Nieto MD [Primary Care Provider] - Disposition Disposition (needs filled in before D/C Order can be placed): Home, Self Care
--- NOTE | 2023-06-10 08:34 | PCM.PN.CNM ---
Subjective Subjective Doing well per patient and nursing staff. Ambulating and taking PO without difficulty. Voiding and passing flatus. Pain controlled. Denies headache, visual changes, chest pain, shortness of breath, leg pain or increased bleeding. Lochia normal. Objective Data Objective Data Vital Signs: Vital Signs Temp Pulse Resp BP Pulse Ox O2 Del Method 97.2 F L 71 16 119/75 97 Room Air 06/10/23 03:06 06/10/23 03:06 06/10/23 03:06 06/10/23 03:06 06/10/23 03:06 06/10/23 03:06 Oxygen Delivery Method Room Air Weight: 182 lb 6.4 oz Body Mass Index (BMI) 34.4 Intake & Output: Intake and Output for Last 24 Hours 06/08/23 06/09/23 06/10/23 23:59 23:59 23:59 Intake Total 3189 / 3189 Output Total 700 / 700 1050 / 1050 Balance 2489 / 2489 -1050 / -1050 Lab / Micro Data 06/09/23 04:55 ROS Constitutional Constitutional: Reports systems reviewed and no addt'l complaints, except as documented; Denies headache(s) Eyes Eyes: Denies acute decrease in peripheral vision, blurry vision or change in vision ENT HEENT: Reports systems reviewed and no addt'l complaints, except as documented Cardiovascular Cardiovascular: Denies chest pain or dizziness Respiratory/Chest Respiratory/Chest: Denies cough, dyspnea, dyspnea on exertion, shortness of breath at rest or shortness of breath with exertion Gastrointestinal Gastrointestinal: Denies abdominal pain, diarrhea, nausea or vomiting Genitourinary Genitourinary: Denies abdominal discomfort Musculoskeletal Musculoskeletal: Denies limited range of motion Integumentary Integumentary: Reports systems reviewed and no addt'l complaints, except as documented Neurologic Neurologic: Reports systems reviewed and no addt'l complaints, except as documented Psychiatric Psychiatric: Reports systems reviewed and no addt'l complaints, except as documented Endocrine Endocrinology: Reports systems reviewed and no addt'l complaints, except as documented Hematologic/Lymphatic Hematologic/Lymphatic: Reports systems reviewed and no addt'l complaints, except as documented Allergic/Immunologic Allergic/Immunologic: Reports systems reviewed and no addt'l complaints, except as documented Physical Exam Const alert and oriented x3 General Appearance: cooperative Orientation / Consciousness: awake, oriented to person, oriented to place and oriented to time Exam Limitations: no limitations HEENT normocephalic Head and Scalp: normal to inspection, normocephalic and atraumatic Face and Sinus: normal facial exam Eyes General Eye: normal appearance of both eyes Neck full ROM Chest Chest: symmetrical chest wall rise Resp normal respiratory effort and normal air movement Auscultation: clear to auscultation bilaterally Cardio regular rate, regular rhythm, S1 normal heart sound, S2 normal heart sound, no murmurs, no rub, no gallops and no clicks GI normal to inspection, nondistended, normoactive bowel sounds and non-tender appearance of the vagina normal Bladder / Kidney Exam: no CVA tenderness Back/Spine normal ROM Extremity normal to inspection and full ROM Skin no rashes or lesions noted Neuro oriented x3, CN's II-XII intact bilaterally and moves all extremities Sensorium / Orientation: awake, alert and oriented to person Motor Exam: clonus absent Deep Tendon Reflexes: Rt Patellar (L4): 2+ and Lt Patellar (L4): 2+ Assessment & Plan (1) Delivery by section: PLAN: Plan POD #2 repeat section vitals stable pain management follow up in one week for incision check, 6 week for PP visit
[2023-06-10 09:00] VITALS: BP 116/68; PULSE 85; RESP 18; TEMP 36.3; O2SAT 99
[2023-06-10] MEDS: Senna/Docusate Sodium 1 Tablet PO (09:19)
--- NOTE | 2023-06-10 11:59 | CASEMGMT ---
Social Work Assessment Labor and Delivery Unit Patient Address: [place] [address] Phone number: [phone] Date of Referral: 06/10/23 Time of Referral:? 348 Referred By: Florencia Tanner Date of Intervention: ??06/10/23 Time of Intervention:? 899 Reason for Referral:? History of anxiety/ depression Sw completed chart review and acknowledges social work consult due to maternal history of anxiety and depression. Sw presented to bedside and introduced self to mother of baby (JERALD- Sandra) and father of baby (RANDI- Julieta). Sw completed psychosocial assessment and provided education and literature to parents. History obtained from: medical records, MOB and FOB. Household composition: Currently residing in the family home is JERALD, RANDI, their older daughter (Candice, : 10/02/21) and now baby. Parents state that they have no housing concerns at this time. Patient's parent/guardian status:? ?Parents report that they started dating when they were 14 in high school. Parents are now . No reported concerns of domestic violence or intimate partner violence. baby is the second child for both parents. Medical History: ?MOB is 2, para 1-now 2 following labor and delivery of baby. JERALD received routine care with [facility] during . JERALD delivered baby via repeat on 06/08/23. Baby boy, Julieta Jin was born weighing 7lb 1oz and his apgars were 8 and 9 at one and five minutes of life respectfully. Baby will be followed by Dr. Shaw at [facility] for pediatrics. Educational Status:? Both parents graduated from high school. JERALD obtained her Masters degree. No concerns with reading, learning or comprehension. Financial Status: Both parents are gainfully employed outside of the home. FOB manages his own company, MOB is a PA for [facility] pediatrics. FOB is able to take a week off of work, JERALD is able to take three months off for maternity leave. Infant Supplies:??Parents state that they have obtained all necessary baby supplies including: car seat, safe sleep space, clothes, diapers, and wipes. Childcare/Caregiver(s):? While JERALD is on maternity leave she will be the primary caregiver to baby, along with FOB when he is not at work. When both parents have returned to work they have several family members and a friend that will be able to babysit both children. Transportation:??Both parents have valid drivers license and reliable means of transportation, no transportation barriers at this time. Programs/Agencies Involved: ???Parents are not connected to any community resources at this time. Children Services/Legal Issues:??? No history of involvement with Children Services, no issues or concerns warranting referral at this time. Behavioral Health Issues: ??Mental Health History:?RANDI denies mental health history. MOB states that she has been diagnosed with anxiety and depression. MOB states that she is currently prescribed zoloft. MOB states that she is familiar with signs and symptoms of baby blues and depression, and states that she did experience them after the of her first baby. MOB states that when she experienced the blues/ she felt more disinterested in doing things that she used to enjoy doing. JERALD stated that RANDI was a good support person for her during that time.?? Substance Use History:?MOB denies substance use prior to and during . ? Family History: Parents deny family history of addiction and mental health diagnoses. ??? Drug Screens: ?No urine screens observed in chart review. ? Family/Social Stressors:? Parents deny any stressors or concerns at this time. Parents state that they are happy the delivery went well and they are looking forward to being discharged today and being home with both of their children. Support Systems: Parents state that both sets of grandparents are supportive. Depression/Shaken Baby/Safe Sleeping:? Dmitriy educated parents on signs and symptoms of baby blues and depression. Parents expressed understanding. Sw educated parents on shaken baby prevention and ABCs of safe sleep. Parents expressed understanding. ASSESSMENT:? MOB and baby admitted following labor and delivery. MOB and FOB talkative during psychosocial assessment. Parents have obtained all necessary baby supplies and have natural supports in place. Parents aware of signs and symptoms of baby blues and to look for, MOB denies experiencing any symptoms at this time. PLAN:? MOB and baby to be discharged when medically ready. ?No other services requested or indicated. Eze Ospina, PIPELINES SUPERINTENDENT, HULL BUILDER
== END 2023-06-10 10:10 | disposition home or self-care (01) | DRG 783 ==
PROVIDERS: Admitting Provider Obstetrics & Gynecology; PCP Family Medicine; Visit Provider Obstetrics & Gynecology
PROC: 10D00Z1 Extraction of Products of Conception, Low, Open Approach (ICD-10-PCS; CPT 59514; principal; 2023-06-08 07:00)
DX: O34.219 Maternal care for unspecified type scar from previous cesarean delivery (principal); G93.5 Compression of brain; K83.1 Obstruction of bile duct; O26.62 Liver and biliary tract disorders in childbirth; O99.354 Diseases of the nervous system complicating childbirth; O24.429 Gestational diabetes mellitus in childbirth, unspecified control; Z30.2 Encounter for sterilization; Z37.0 Single live birth; Z3A.37 37 weeks gestation of pregnancy; O40.3XX0 Polyhydramnios, third trimester, not applicable or unspecified
CPT/HCPCS: 59025; 59050; 82962; 85025; 85027; 86780; 86850; 86900; 86901; 88302; 88305; 99221; 99252; J7120; A4216; G0378; G0463; J2405